=== PATIENT | female | born 2000 | race American Indian/Alaskan Native ===

== ENCOUNTER 2025-02-15 16:34 | Emergency (ER) | payer OTHER, BC ==
[~2025-02-15] VITALS: Ht 167.6 cm; Wt 57.2 kg
[2025-02-15] MEDS ORDERED: ZOLOFT25 MG PO (19:29)
[2025-02-15] MEDS ORDERED: CYCLOBENZAPRINE HCL 10 MG TAB PO ONE (19:45)
[2025-02-15] MEDS ORDERED: KETOROLAC TROMETHAMINE 30 MG/ML VIAL IM ONE (19:45)
[2025-02-15] MEDS ORDERED: CYCLOBENZAPRINE10 MG PO (21:37)
[2025-02-15] MEDS ORDERED: CYCLOBENZAPRINE HCL 10 MG HOME.PACK PO ONE (21:45)
[2025-02-15 21:50] VITALS: BP 103/65
== END 2025-02-15 21:50 | disposition home or self-care (01) ==
LOC: ED 16:34
DX: S16.1XXA Strain of muscle, fascia and tendon at neck level, initial encounter (principal); F07.81 Postconcussional syndrome; Z79.899 Other long term (current) drug therapy; V89.2XXA Person injured in unspecified motor-vehicle accident, traffic, initial encounter
CPT/HCPCS: 70450; 72125; 96372; 99284-25; J1885